=== PATIENT | female | born 1955 | race Caucasian/White ===

== ENCOUNTER 2019-05-28 19:33 | Emergency (ER) | payer MEDICARE ==
[~2019-05-28] VITALS: Ht 165.1 cm; Wt 84.5 kg
[2019-05-28 20:01] VITALS: BP 169/90
--- NOTE | 2019-05-28 21:21 | NUR ---
LEFT FOOT SPLINT APPLIED BY EMT WITH +CMS POST APPLICATION CRUTCHES PROVIDED-PATIENT DEMONSTRATED SAFE USE
== END 2019-05-28 21:23 | disposition home or self-care (01) ==
LOC: ED 21:15
DX: S92.345A Nondisplaced fracture of fourth metatarsal bone, left foot, initial encounter for closed fracture (principal); I10 Essential (primary) hypertension; X50.1XXA Overexertion from prolonged static or awkward postures, initial encounter; Y93.89 Activity, other specified; Y92.009 Unspecified place in unspecified non-institutional (private) residence as the place of occurrence of the external cause; Y99.8 Other external cause status
CPT/HCPCS: 29515; 99283

== ENCOUNTER 2020-07-15 22:53 | Emergency (ER) | payer MEDICARE ==
[~2020-07-15] VITALS: Ht 165.1 cm; Wt 84.2 kg
[2020-07-16 00:19] LABS: BASOPHILS % (AUTO) 1 % (0-1); EOSINOPHILS % (AUTO) 1 % (1-7); LYMPHOCYTES % (AUTO) 20 % (22-44); MEAN CORPUSCULAR HEMOGLOBIN 31.8 pg (27.0-34.8); MEAN CORPUSCULAR HGB CONC 34.5 g/dL (32.4-35.8); MEAN PLATELET VOLUME 6.7 fL (7.4-10.4); MONOCYTES % (AUTO) 7 % (2-9); NEUTROPHILS % (AUTO) 71 % (42-75); PLATELET COUNT 288 x10^3/uL (130-400); RED CELL DISTRIBUTION WIDTH 13.8 % (9.6-15.2)
[2020-07-16 00:20] LABS: MD NO
[2020-07-16 00:27] LABS: ALANINE AMINOTRANSFERASE 41 U/L (12-78); ALBUMIN 3.5 g/dL (3.4-5.0); ANION GAP 4 mmol/L (5-15); CALCIUM 8.8 mg/dL (8.5-10.1); CHLORIDE 110 mmol/L (98-107); CREATININE 0.69 mg/dL (0.55-1.02)
[2020-07-16 00:37] LABS: ALKALINE PHOSPHATASE 86 U/L (45-117); BILIRUBIN,TOTAL 0.4 mg/dL (0.2-1.0); T4 (THYROXINE) 8.5 mcg/dL (4.8-13.9); TOTAL PROTEIN 6.7 g/dL (6.4-8.2); TROPONIN I < 0.015 ng/mL (0.000-0.045)
--- NOTE | 2020-07-16 00:55 | NUR ---
Pt states feeling fine with no palpations. VS remains stable in NSR. no pain. pt A&O.
[2020-07-16 01:46] VITALS: BP 137/81
--- NOTE | 2020-07-16 01:47 | NUR ---
Pt with stable vs. Pt remains in NSR while in the ER. Pt denies CP, palpatation, SOB or lightheadedness. Pt ambulatory out of Ed without difficulty. Pt home with friend.
== END 2020-07-16 01:49 | disposition home or self-care (01) ==
LOC: ED 23:33
DX: R00.2 Palpitations (principal); R07.89 Other chest pain; R06.02 Shortness of breath; R94.31 Abnormal electrocardiogram [ECG] [EKG]; Z88.0 Allergy status to penicillin
CPT/HCPCS: 36415; 80053; 83735; 83880; 84436; 84443; 84484; 85025; 93005; 99284

== ENCOUNTER 2020-07-23 02:03 | Emergency (ER) | payer MEDICARE ==
[~2020-07-23] VITALS: Ht 165.1 cm; Wt 83.3 kg
--- NOTE | 2020-07-23 02:54 | NUR ---
FIRST CONTACT WITH PT.; TO ED WITH C/O INTERMITTENT PALPITATIONS SINCE 1600. PT. REPORTS MILD OGDEN WELL. PT. REPORTS HX OF SAME TWO WEEKS AGO. 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 NSR NOTED ON MONITOR. EKG WAS DONE IN TRIAGE AND PRESENTED TO ERMD. WARM BLANKET AND PILLOW PROVIDED TO PT. CALL LIGHT IN REACH. ALL SAFETY MEASURES OBSERVED.
[2020-07-23 02:57] VITALS: BP 143/84
[2020-07-23 02:58] LABS: BASOPHILS % (AUTO) 1 % (0-1); EOSINOPHILS % (AUTO) 2 % (1-7); LYMPHOCYTES % (AUTO) 32 % (22-44); MD NO; MEAN CORPUSCULAR HEMOGLOBIN 31.6 pg (27.0-34.8); MEAN CORPUSCULAR HGB CONC 33.8 g/dL (32.4-35.8); MEAN PLATELET VOLUME 7.1 fL (7.4-10.4); MONOCYTES % (AUTO) 8 % (2-9); NEUTROPHILS % (AUTO) 58 % (42-75); PLATELET COUNT 296 x10^3/uL (130-400); RED BLOOD COUNT 4.74 x10^6/uL (3.82-5.3); RED CELL DISTRIBUTION WIDTH 13.6 % (9.6-15.2)
[2020-07-23 03:00] LABS: ANION GAP 4 mmol/L (5-15); CHLORIDE 110 mmol/L (98-107); CREATININE 0.64 mg/dL (0.55-1.02)
[2020-07-23 03:01] LABS: ALBUMIN 3.7 g/dL (3.4-5.0)
== END 2020-07-23 04:09 | disposition home or self-care (01) ==
LOC: ED 03:58
DX: R00.2 Palpitations (principal)
CPT/HCPCS: 36415; 80048; 82040; 83735; 85025; 93005; 99284

== ENCOUNTER 2020-09-28 14:02 | Outpatient (CLI) | payer MEDICARE ==
[2020-09-28] MEDS ORDERED: EZET10TA70 PO (14:32)
[2020-09-28] MEDS ORDERED: HYDROCHLOROTH12.5 MG PO (14:32)
[2020-09-28] MEDS ORDERED: ENALAPRIL PO (14:32)
[2020-09-28] MEDS ORDERED: AMLO-150 PO (14:32)
[2020-09-28] MEDS ORDERED: ACYC-114 PO (14:32)
[2020-09-28] MEDS ORDERED: METOPROLOL PO (14:32)
[2020-09-28] MEDS ORDERED: ALPR0.254 PO (14:32)
[2020-09-28] MEDS ORDERED: OMEP20TA62 PO (14:32)
[2020-09-28] MEDS ORDERED: ROSU10TA2 PO (14:32)
[2020-09-28] MEDS ORDERED: MAGN400T36 PO (14:51)
[2020-09-28] MEDS ORDERED: POTASSIUM PO (14:51)
[2020-09-28] MEDS ORDERED: ZINC PO (14:51)
[2020-09-28 15:36] LABS: ALANINE AMINOTRANSFERASE 35 U/L (12-78); ANION GAP 6 mmol/L (5-15); CHLORIDE 104 mmol/L (98-107); CREATININE 0.77 mg/dL (0.55-1.02)
[2020-09-28 15:38] LABS: ALKALINE PHOSPHATASE 86 U/L (45-117); BILIRUBIN,TOTAL 0.3 mg/dL (0.2-1.0); TOTAL PROTEIN 7.4 g/dL (6.4-8.2)
== END 2020-09-28 23:59 | disposition home or self-care (01) ==
LOC: STAR 14:02
PROVIDERS: ATTEND Surgery
DX: Z01.812 Encounter for preprocedural laboratory examination (principal); Z20.822 Contact with and (suspected) exposure to COVID-19; I21.19 ST elevation (STEMI) myocardial infarction involving other coronary artery of inferior wall
CPT/HCPCS: 36415; 80053; 93005; U0003

== ENCOUNTER 2020-10-04 07:55 | Day surgery (SDC) | payer MEDICARE ==
[~2020-10-04] VITALS: Ht 165.1 cm; Wt 79.4 kg
[~2020-10-04 07:55] MED LIST: ACYC-114 PO; ALPR0.254 PO; AMLO-150 PO; BUPIVACAINE/PF 0.25% ONE; ENALAPRIL PO; EPINEPHRINE 1 MG/ML, 1ML ONE; EZET10TA70 PO; HYDROCHLOROTH12.5 MG PO; MAGN400T36 PO; METOPROLOL PO; OMEP20TA62 PO; POTASSIUM PO; ROSU10TA2 PO; ZINC PO
[2020-10-04] MEDS ORDERED: CHLORHEXIDINE 15 ML UDC PO ONE (08:30)
[2020-10-04] MEDS ORDERED: LACTATED RINGERS 1,000 ML IV SCH (08:30)
[2020-10-04] MEDS ORDERED: OMEP20TA62 PO (08:34)
[2020-10-04] MEDS ORDERED: CRANBERRY PO (08:35)
[2020-10-04] MEDS ORDERED: D MANNOSE PO (08:35)
[2020-10-04 08:47] VITALS: BP 120/82
[2020-10-04] MEDS ORDERED: ONDA4TAB7 PO (09:19)
[2020-10-04] MEDS ORDERED: OXYC-302 PO (09:19)
[2020-10-04] MEDS ORDERED: FENTANYL PF 250 MCG/5ML ONE (09:22)
[2020-10-04] MEDS ORDERED: MIDAZOLAM 1 MG/ML, 2ML ONE (09:22)
[2020-10-04] MEDS ORDERED: BUPIVACAINE/PF 0.25% ONE (09:39)
[2020-10-04] MEDS ORDERED: EPINEPHRINE 1 MG/ML, 1ML ONE (09:39)
[2020-10-04] MEDS ORDERED: BUPIVACAINE/PF-EPI 0.25% 1:200K INFIL ONE (10:00)
[2020-10-04] MEDS ORDERED: ONDANSETRON 2MG/ML, 2ML ONE (10:56)
[2020-10-04] MEDS ORDERED: MEPERIDINE/PF 25MG/0.5ML IVPush PRN (11:00)
[2020-10-04] MEDS ORDERED: KETOROLAC 30 MG/1 ML IV PRN (11:00)
[2020-10-04] MEDS ORDERED: OXYcodone 5 MG/5 ML ORAL.SOL UDC PO PRN (11:00)
[2020-10-04] MEDS ORDERED: DIAZEPAM 5 MG/ML, 2ML IV PRN ×2 (11:00)
[2020-10-04] MEDS ORDERED: LABETALOL 5MG/ML, 20ML IV PRN (11:00)
[2020-10-04] MEDS ORDERED: PROMETHAZINE 25 MG/ML, 1ML IV PRN (11:00)
[2020-10-04] MEDS ORDERED: FENTANYL PF 100 MCG/2ML IV PRN (11:00)
[2020-10-04] MEDS ORDERED: HYDROmorphone 1 MG/ML, 1ML INJ IV PRN (11:00)
[2020-10-04] MEDS ORDERED: ALBUTEROL SULFATE 2.5 MG/3 ML NPPB PRN (11:00)
[2020-10-04] MEDS ORDERED: hydrALAzine 20 MG/ML, 1ML IV PRN (11:00)
[2020-10-04] MEDS ORDERED: ONDANSETRON 2MG/ML, 2ML IVPush PRN (11:00)
[2020-10-04] MEDS ORDERED: METOCLOPRAMIDE 5 MG/ML, 2ML IV PRN (11:00)
== END 2020-10-04 13:50 | disposition home or self-care (01) ==
LOC: OUT 07:55
PROVIDERS: ATTEND Surgery
DX: K81.1 Chronic cholecystitis (principal); I10 Essential (primary) hypertension; E78.00 Pure hypercholesterolemia, unspecified; F41.9 Anxiety disorder, unspecified; Z79.899 Other long term (current) drug therapy; Z88.0 Allergy status to penicillin; Z90.49 Acquired absence of other specified parts of digestive tract; Z82.49 Family history of ischemic heart disease and other diseases of the circulatory system; Z80.51 Family history of malignant neoplasm of kidney; Z82.3 Family history of stroke
CPT/HCPCS: 47562; 88304; J0171; J2250; J2405; J3010; J7120